=== PATIENT | male | born 2005 | race Caucasian/White ===

== ENCOUNTER 2025-08-14 22:23 | Emergency (ER) | payer OTHER, SELFPAY ==
[2025-08-14 22:26] VITALS: BP 122/81; PULSE 101; RESP 16; TEMP 36.2; O2SAT 100; BMI 17.6
--- NOTE | 2025-08-14 22:56 | ED_ITS ---
HPI - Abdominal Pain General Chief Complaint: Abdominal Pain Stated Complaint: left side abdominal pain History of Present Illness HPI narrative: This 20-year-old male comes in reporting intermittent left-sided abdominal pain. This has been occurring for the past few days. He arrives here with normal vital signs. He states that he has been having abdominal symptoms for many months and did go into an emergency department elsewhere earlier this year. He had labs and imaging done then which did not show any abnormalities. He was prescribed Pepcid. He states that this has not helped his symptoms. He states that he has lost about 20 lb over the last 8 or 9 months mostly because he feels nauseated any just does not care to take food. He states that when he eats toward evening he does not feel right through the night. He has a friend or relative that is the doctor who recommended that he go to a gastroenterology clinic. Related Data Home Medications ?Medication ?Instructions ?Recorded ?Confirmed montelukast 10 mg tablet 10 mg PO DAILY 08/14/250 04/03 polyethylene glycol 3350 17 g PO 08/14/25 gram/dose oral powder Allergies Allergy/AdvReac Type Severity Reaction Status Date / Time No Known Drug Allergies Allergy Verified 08/14/25 22:31 Review of Systems Status of ROS Reports: 10 or more systems reviewed and unremarkable except as noted in History and below Narrative Constitutional: No fevers, no weight gain or loss. Eyes: No discharge. No vision changes. HENT: No congestion, no sore throat, no ear pain. Cardiovascular: No chest pain, no palpitations. Respiratory: No shortness of breath, no wheezes, no cough. Gastrointestinal: No vomiting, no diarrhea. Abdominal pain as described above. He reports nausea symptoms also. Genitourinary: No dysuria, no hematuria. Musculoskeletal: Normal range of motion. Skin: No rashes, no pruritis. Neurological: No dizziness, weakness, sensory change, speech change. Endo/Heme/Allergies: No bruising or bleeding. No polydipsia. Pysch: no suicidality, no anxiety, no insomnia. All other systems reviewed and are negative. Exam Narrative: Exam Narrative: Constitutional: Well-developed, well-nourished, no acute distress. HEENT: Normocephalic, atraumatic. Neck: Normal range of motion. Nontender. Supple. Heart: Regular. No murmurs. Normal rate. Intact distal pulses. Lungs: Clear to auscultation. No chest discomfort. No wheezes, rhonchi, or rales. Abdomen: Normal bowel sounds. Nontender currently. No rebound tenderness. Genitalia: Deferred. Back: No midline tenderness. Normal range of motion. Extremities: Normal range of motion. No injury. Skin: Intact. No rash. Warm. No erythema or pallor. Neurologic: No altered sensation. No weakness. Alert and oriented. Psychiatric: No suicidality. No anxiety or depression. No insomnia. Nursing notes and vitals signs are reviewed. Const: Vital Signs, click to edit/add: Vital Signs - 24 hr 08/14/25 22:26 Temperature 97.2 F L Pulse Rate [Pulse Oximeter] 101 H Respiratory Rate 16 Blood Pressure [Ri ght Upper Arm] 122/81 Pulse Oximetry 100 Oxygen Delivery Me thod Room Air Course Vital Signs Vital signs: Initial Vital Signs Temperature 97.2 F L 08/14/25 22:26 Temperature Source Temporal Artery Scan 08/14/25 22:26 Pulse Rate 101 H 08/14/25 22:26 Respiratory Rate 16 08/14/25 22:26 Blood Pressure 122/81 08/14/25 22:26 Blood Pressure Mean 94 08/14/25 22:26 Pulse Oximetry 100 08/14/25 22:26 Oxygen Delivery Method Room Air 08/14/25 22:26 Vital Signs Temperature 97.2 F L 08/14/25 22:26 Pulse Rate 101 H 08/14/25 22:26 Respiratory Rate 16 08/14/25 22:26 Blood Pressure 122/81 08/14/25 22:26 Pulse Oximetry 100 08/14/25 22:26 Oxygen Delivery Method Room Air 08/14/25 22:26 Temperature 97.2 F L 08/14/25 22:26 Pulse Rate 101 H 08/14/25 22:26 Respiratory Rate 16 08/14/25 22:26 Blood Pressure 122/81 08/14/25 22:26 Pulse Oximetry 100 08/14/25 22:26 Oxygen Delivery Method Room Air 08/14/25 22:26 MDM - Abdominal Pain MDM Narrative Medical decision making narrative: This patient comes in reporting intermittent abdominal pain and nausea symptoms. He plans to follow-up with GI clinic and states that he was really hoping to get something to help him with pain and nausea. I did provide [facility] prescriptions for Toradol and Zofran. I did discuss lab and imaging options and these were declined in a process of shared decision making. Discharge Plan Discharge Clinical Impression: Abdominal pain Patient Disposition: Home, Self-Care Condition: Stable Additional Instructions: Take medications as needed and indicated. Follow-up with gastroenterology clinic. Return if symptoms are persistent or worsening. Prescriptions: No Action montelukast 10 mg tablet 10 mg PO DAILY polyethylene glycol 3350 17 gram/dose powder PO Follow Up/Referrals: Ash Chaudhry MD [Primary Care Provider, Family Practice] Stand Alone Forms: [employer] Info Instructions
[2025-08-14 23:21] VITALS: BP 102/75; PULSE 60; RESP 16; O2SAT 98
== END 2025-08-14 23:23 | disposition home or self-care (01) ==
LOC: ED 23:09
PROVIDERS: Emergency Provider Emergency Medicine Emergency Medical Services; PCP Family Medicine
DX: R10.9 Unspecified abdominal pain (principal); R11.0 Nausea
CPT/HCPCS: 93005; 99283; 99284